=== PATIENT | female | born 1990 | race Caucasian/White ===

== ENCOUNTER 2019-10-31 22:44 | Emergency (ER) | payer OTHER ==
[2019-10-31] MEDS ORDERED: ACETAMINOPHEN 325 MG TABLET (FP) PO ONE (23:08)
[2019-10-31] MEDS ORDERED: ACETAMINOPHEN 325 MG TABLET (FP) ONE (23:10)
[2019-10-31 23:38] VITALS: BMI 35.0
[2019-11-01] MEDS ORDERED: OSELTAMIVIR PHOSPHATE 75 MG CAPSULE PO ONE (00:22)
[2019-11-01] MEDS ORDERED: OSELTAMIVIR PHOSPHATE 75 MG CAPSULE ONE (00:25)
--- NOTE | 2019-11-01 00:31 | PDOC ---
History of Present Illness - General Chief Complaint: Cold Symptoms Stated Complaint: FEVER Time Seen by Provider: 11/01/19 00:13 History Source: Patient Exam Limitations: No Limitations Past History - Past Medical History Allergies/Adverse Reactions: Allergies Allergy/AdvReac Type Severity Reaction Status Date / Time No Known Allergies Allergy Verified 10/31/19 23:06 Home Medications: Ambulatory Orders Oseltamivir Phosphate [Tamiflu] 75 mg PO BID #9 capsule 11/01/19 COPD: No Other medical history: psoriatic arthritis - Psycho Social/Smoking Cessation Hx Smoking History: Never smoked Have you smoked in the past 12 months: No Information on smoking cessation initiated: No Hx Alcohol Use: No Drug/Substance Use Hx: No *Physical Exam - Vital Signs Last Vital Signs Temp Pulse Resp BP Pulse Ox 101.8 F H 114 H 18 134/77 98 10/31/19 23:03 10/31/19 23:03 10/31/19 23:03 10/31/19 23:03 10/31/19 23:03 - Physical Exam General Appearance: No: Apparent Distress HEENT: positive: Pharynx Normal, Rhinorrhea. negative: Nasal Congestion Respiratory/Chest: positive: Lungs Clear, Normal Breath Sounds. negative: Respiratory Distress Cardiovascular: negative: Murmur Gastrointestinal/Abdominal: positive: Normal Bowel Sounds, Soft. negative: Tender, Distended, Guarding, Rebound Integumentary: positive: Normal Color Neurologic: positive: Alert ED Treatment Course - ADDITIONAL ORDERS Additional order review: Laboratory Results 10/31/19 23:45 Urine HCG, Qual Negative - Medications Given in the ED: ED Medications Discontinued Medications Generic Name Dose Route Start Last Admin Trade Name Johnq PRN Reason Stop Dose Admin Acetaminophen 975 mg 10/31/19 23:08 10/31/19 23:10 Tylenol - PO 10/31/19 23:09 975 mg ONCE ONE Administration Medical Decision Making - Medical Decision Making 29 y/o F hx of psoriatic arthritis (on methotrexate) presents with fever x 3 days along with chills, body aches, rhinorrhea, congestion. +sick family members with flu. Denies sob, cp, abd pain, n/v/d. Is keeping down liquids. Flu B+ Given Tylenol from triage Repeat temp is 99.8 Though patient past 48 hour window, will treat given on methotrexate Given tamiflu 11/01/19 00:26 Discharge - Discharge Information Problems reviewed: Yes Clinical Impression/Diagnosis: Influenza Condition: Stable Disposition: HOME - Admission No - Additional Discharge Information Prescriptions: Oseltamivir Phosphate [Tamiflu] 75 mg PO BID #9 capsule Prescription Drug Monitoring Program (I-STOP) results: I-STOP not reviewed - Follow up/Referral Referrals: Neyda Veronica [Primary Care Provider] - 2 Days - Patient Discharge Instructions Patient Printed Discharge Instructions: DI for Influenza -- Adult Additional Instructions: Thank you for choosing [facility]. It was a pleasure taking care of you. Please take Tamiflu as directed Alternate between Tylenol every 4 and Motrin every 6 hours as needed for fever Drink at least 2-3L of water daily Return to the Emergency Department if your symptoms worsen or persist or have other concerning symptoms. - Post Discharge Activity
[2019-11-01 00:35] VITALS: BP 128/72; PULSE 99; TEMP 99.3
== END 2019-11-01 00:37 | disposition home or self-care (01) ==
LOC: JER 22:44
DX: J10.1 Influenza due to other identified influenza virus with other respiratory manifestations (principal); L40.50 Arthropathic psoriasis, unspecified
CPT/HCPCS: 84703; 87804; 99282-25

== ENCOUNTER 2020-10-22 17:48 | Emergency (ER) | payer OTHER ==
[2020-10-22 17:56] VITALS: BP 127/78; PULSE 67; TEMP 97.9; BMI 36.5
[2020-10-22] MEDS ORDERED: ACETAMINOPHEN 325 MG TABLET (FP) PO ONE (19:23)
[2020-10-22] MEDS ORDERED: LIDOCAINE 5% TOPICAL PATCH TP ONE (19:23)
[2020-10-22] MEDS ORDERED: LIDOCAINE 5% TOPICAL PATCH ONE (19:27)
[2020-10-22] MEDS ORDERED: ACETAMINOPHEN 325 MG TABLET (FP) ONE (19:27)
[2020-10-22 21:24] LABS: HCG,QUALITATIVE URINE Positive
[2020-10-22 21:26] LABS: EPI CELLS 12 /uL (0-25.1); HYALINE CASTS 1 /uL (0-3.1); PH,URINE 5.5 (5.0-8.0); URINE APPEARANCE CLEAR; URINE BACTERIA 1563 /uL (0-1359); URINE BILIRUBIN NEGATIVE (NEGATIVE); URINE COLOR YELLOW; URINE GLUCOSE (UA) NEGATIVE (NEGATIVE); URINE KETONE NEGATIVE (NEGATIVE); URINE LEUK ESTERASE 2+ (NEGATIVE); URINE NITRITE NEGATIVE (NEGATIVE); URINE PROTEIN NEGATIVE (NEGATIVE); URINE WBC 203 /uL (0-25.8)
[2020-10-22 21:39] LABS: URINE RBC 30.5 /uL (0-23.9)
== END 2020-10-22 22:19 | disposition home or self-care (01) ==
LOC: JER 17:48 → MERGE 17:48 → JER 22:19
DX: N39.0 Urinary tract infection, site not specified (principal); M54.5 Low back pain; N83.209 Unspecified ovarian cyst, unspecified side; Z3A.01 Less than 8 weeks gestation of pregnancy
CPT/HCPCS: 76815; 76817-TC; 81003; 84703; 87086; 99284-25

== ENCOUNTER 2021-06-08 07:40 | Inpatient (IN) | payer OTHER ==
[2021-06-08] MEDS ORDERED: ELECTROLYTE-148 SOLN 1,000 ML IV SCH (08:15)
[2021-06-08 08:45] VITALS: BMI 41.4
[2021-06-08] MEDS ORDERED: CITRIC ACID/SODIUM CITRATE 30 ML UNIT-DOSE CUP PO ONE (09:45)
[2021-06-08] MEDS ORDERED: ceFAZolin SODIUM 1 GM VIAL ONE (10:29)
[2021-06-08] MEDS ORDERED: DEXAMETHASONE SOD PHOSPHATE 4 MG/1 ML VIAL ONE (10:29)
[2021-06-08] MEDS ORDERED: morphine SULFATE/PF 0.5 MG/ML (2cc Syringe - QUVA) ONE (10:29)
[2021-06-08] MEDS ORDERED: ONDANSETRON 4 MG/2 ML VIAL ONE (10:29)
[2021-06-08] MEDS ORDERED: OXYTOCIN 10 UNITS/ML VIAL ONE (11:07)
[2021-06-08] MEDS ORDERED: KETOROLAC TROMETHAMINE 30 MG/1 ML VIAL ONE (11:32)
[2021-06-08] MEDS ORDERED: BENZOCAINE 20% 57 GM BOTTLE TP PRN (11:50)
[2021-06-08] MEDS ORDERED: WITCH HAZEL 50% (TUCKS) 40 PAD/JAR PAD TP PRN (11:50)
[2021-06-08] MEDS ORDERED: BENZOCAINE 28 GM HEMORRHOIDAL OINTMENT TP PRN (11:50)
[2021-06-08] MEDS ORDERED: METHYLERGONOVINE MALEATE 0.2 MG/1 ML AMP IM PRN (11:50)
[2021-06-08] MEDS ORDERED: diphenhydrAMINE HCL 25 MG CAPSULE (FP) PO PRN (11:50)
[2021-06-08] MEDS ORDERED: oxyCODONE HCL 5 MG TABLET PO PRN (11:50)
[2021-06-08] MEDS ORDERED: OXYTOCIN 20 UNITS in 0.9% NS 20 UNIT/1,000 ML INFUS.BAG IV ONE (11:52)
[2021-06-08] MEDS ORDERED: DEXTROSE 5%-LACTATED RINGERS 1,000 ML IV SCH (12:00)
[2021-06-08] MEDS ORDERED: OXYTOCIN 20 UNITS in 0.9% NS 20 UNIT/1,000 ML INFUS.BAG IV SCH (12:00)
[2021-06-08] MEDS ORDERED: ONDANSETRON 4 MG/2 ML VIAL IVPUSH PRN (12:40)
[2021-06-08] MEDS ORDERED: ACETAMINOPHEN 1000 MG/100 ML VIAL (NON FORMULARY) IVPB PRN (12:42)
[2021-06-08] MEDS: CEFAZOLIN 1 GM/D5W 1 GM/50 ML BAG IVPB SCH (17:03)
[2021-06-08] MEDS: IBUPROFEN 800 MG/8 ML IJ IVPB PRN (17:39)
[2021-06-08] MEDS ORDERED: hydrOXYzine PAMOATE 25 MG CAPSULE (FP) PO PRN (20:22)
[2021-06-09] MEDS: CEFAZOLIN 1 GM/D5W 1 GM/50 ML BAG IVPB SCH (02:35)
[2021-06-09] MEDS: IBUPROFEN 800 MG/8 ML IJ IVPB PRN (08:55)
[2021-06-09] MEDS: ENOXAPARIN NA (PORCINE) 40 MG/0.4 ML DISP.SYRIN SQ SCH (09:39)
[2021-06-09 10:04] LABS: BASO % 0.3 % (0-2.0); EOS % 0.7 % (0-4.5); HEMATOCRIT 34.8 % (32.4-45.2); HEMOGLOBIN 11.8 GM/dL (10.7-15.3); MCH 29.2 pg (25.7-33.7); MCHC 33.9 g/dl (32.0-36.0); MEAN CELL VOLUME 86.1 fl (80-96); MEAN PLT VOLUME 8.1 fl (7.5-11.1); MONO % 6.3 % (3.8-10.2); NEUT % 77.7 % (42.8-82.8); PLATELET COUNT 182 10^3/uL (134-434); RBC 4.04 M/mm3 (3.60-5.2); WHITE BLOOD COUNT 13.6 K/mm3 (4.0-10.0)
[2021-06-09] MEDS ORDERED: BISACODYL 10 MG SUPP.RECT PR PRN (11:50)
[2021-06-09] MEDS: oxyCODONE HCL 5 MG TABLET PO PRN ×2 (13:06→22:47)
[2021-06-09] MEDS: SIMETHICONE 80 MG TAB.CHEW (FP) PO PRN ×2 (13:07→17:43)
[2021-06-09] MEDS: IBUPROFEN 600 MG TABLET (FP) PO PRN (17:43)
[2021-06-10] MEDS: IBUPROFEN 600 MG TABLET (FP) PO PRN (02:13)
[2021-06-10] MEDS: ACETAMINOPHEN 325 MG TABLET (FP) PO PRN ×3 (02:14→15:56)
[2021-06-10] MEDS: SIMETHICONE 80 MG TAB.CHEW (FP) PO PRN ×2 (02:14→21:27)
[2021-06-10] MEDS: ENOXAPARIN NA (PORCINE) 40 MG/0.4 ML DISP.SYRIN SQ SCH (09:41)
[2021-06-10] MEDS: oxyCODONE HCL 5 MG TABLET PO PRN ×2 (15:55→21:27)
[2021-06-10] MEDS ORDERED: SENNOSIDES/DOCUSATE COMBO (SENNA PLUS) TABLET (UD) PO PRN (22:00)
[2021-06-11] MEDS: IBUPROFEN 600 MG TABLET (FP) PO PRN (02:06)
[2021-06-11 08:48] VITALS: BP 101/60; PULSE 71; TEMP 98.1
[2021-06-11] MEDS: ENOXAPARIN NA (PORCINE) 40 MG/0.4 ML DISP.SYRIN SQ SCH (09:55)
[2021-06-11 09:57] LABS: BASO % 0.3 % (0-2.0); HEMATOCRIT 34.6 % (32.4-45.2); HEMOGLOBIN 11.7 GM/dL (10.7-15.3); LYMPH % 22.7 % (8-40); MCH 29.3 pg (25.7-33.7); MCHC 33.9 g/dl (32.0-36.0); MEAN CELL VOLUME 86.4 fl (80-96); MEAN PLT VOLUME 8.3 fl (7.5-11.1); MONO % 7.6 % (3.8-10.2); NEUT % 67.4 % (42.8-82.8); PLATELET COUNT 208 10^3/uL (134-434); RDW 15.1 % (11.6-15.6); WHITE BLOOD COUNT 8.5 K/mm3 (4.0-10.0)
== END 2021-06-11 14:10 | disposition home or self-care (01) | DRG 540 ==
LOC: JLDR 07:40 → J3W 13:25
PROVIDERS: ADMIT Obstetrics & Gynecology; ATTEND Obstetrics & Gynecology
PROC: 10D00Z1 Extraction of Products of Conception, Low, Open Approach (ICD-10-PCS; principal; 2021-06-08)
PROC: 0UT70ZZ Resection of Bilateral Fallopian Tubes, Open Approach (ICD-10-PCS; 2021-06-08)
DX: O34.211 Maternal care for low transverse scar from previous cesarean delivery (principal); O99.214 Obesity complicating childbirth; E66.01 Morbid (severe) obesity due to excess calories; O69.81X0 Labor and delivery complicated by cord around neck, without compression, not applicable or unspecified; Z30.2 Encounter for sterilization; Z3A.39 39 weeks gestation of pregnancy; Z37.0 Single live birth
CPT/HCPCS: 36415; 82962; 85025; 88302-TC; 88307-TC; J0131

== ENCOUNTER 2021-07-04 22:39 | Emergency (ER) | payer OTHER ==
[2021-07-04 22:52] VITALS: BMI 35.0
[2021-07-05] MEDS ORDERED: ACETAMINOPHEN 1000 MG/100 ML VIAL (NON FORMULARY) IVPB ONE (01:07)
[2021-07-05] MEDS ORDERED: ACETAMINOPHEN INJECTION 100 ML IVPB ONE (01:30)
[2021-07-05 01:48] LABS: BASO % 0.6 % (0-2.0); EOS % 3.2 % (0-4.5); HEMATOCRIT 41.6 % (32.4-45.2); HEMOGLOBIN 14.1 GM/dL (10.7-15.3); LYMPH % 35.7 % (8-40); MCH 28.7 pg (25.7-33.7); MEAN CELL VOLUME 84.6 fl (80-96); MEAN PLT VOLUME 8.7 fl (7.5-11.1); MONO % 6.4 % (3.8-10.2); NEUT % 54.1 % (42.8-82.8); PLATELET COUNT 230 10^3/uL (134-434); RBC 4.91 M/mm3 (3.60-5.2); RDW 14.4 % (11.6-15.6); WHITE BLOOD COUNT 8.2 K/mm3 (4.0-10.0)
[2021-07-05 02:09] LABS: INR 0.89 (0.83-1.09); PROTHROMBIN TIME (PATIENT) 10.8 SEC (9.7-13.0)
[2021-07-05 02:11] LABS: ACTIVATED PTT 39.7 SECONDS (25.2-36.5)
[2021-07-05 02:12] LABS: CHLORIDE 105 mmol/L (98-107); SODIUM 140 mmol/L (136-145)
[2021-07-05 02:14] LABS: ALBUMIN 3.3 g/dl (3.4-5.0); BLOOD UREA NITROGEN 14.7 mg/dL (7-18); CALCIUM 8.5 mg/dL (8.5-10.1); CO2 31 mmol/L (21-32); GLUCOSE,RANDOM 91 mg/dL (74-106)
[2021-07-05 02:17] LABS: CREATININE 0.9 mg/dL (0.55-1.3); SGOT/AST 48 U/L (15-37); SGPT/ALT 44 U/L (13-61)
[2021-07-05 02:19] LABS: BILIRUBIN,TOTAL 0.4 mg/dL (0.2-1); TOT PROT 6.9 g/dl (6.4-8.2)
[2021-07-05 02:20] LABS: ALK PHOS 101 U/L (45-117)
[2021-07-05 02:51] LABS: ANION GAP 4 MMOL/L (8-16)
[2021-07-05] MEDS ORDERED: KETOROLAC TROMETHAMINE 30 MG/1 ML VIAL IVPUSH ONE (03:21)
[2021-07-05] MEDS ORDERED: KETOROLAC TROMETHAMINE 30 MG/1 ML VIAL ONE (03:40)
[2021-07-05] MEDS ORDERED: ONDANSETRON *ODT* 4 MG TABLET SL ONE (03:51)
[2021-07-05 03:56] LABS: ALBUMIN 3.4 g/dl (3.4-5.0); BLOOD UREA NITROGEN 15.8 mg/dL (7-18); CALCIUM 8.4 mg/dL (8.5-10.1)
[2021-07-05 03:59] LABS: CREATININE 0.9 mg/dL (0.55-1.3)
[2021-07-05] MEDS ORDERED: ONDANSETRON *ODT* 4 MG TABLET ONE (04:00)
[2021-07-05 04:01] LABS: BILIRUBIN,TOTAL 0.3 mg/dL (0.2-1); TOT PROT 6.7 g/dl (6.4-8.2)
[2021-07-05 04:26] VITALS: BP 117/89; PULSE 82; TEMP 98.2
== END 2021-07-05 04:26 | disposition home or self-care (01) ==
LOC: JER 22:39
PROC: 3E0333Z Introduction of Anti-inflammatory into Peripheral Vein, Percutaneous Approach (ICD-10-PCS; principal; 2021-07-04)
PROC: 3E0333Z Introduction of Anti-inflammatory into Peripheral Vein, Percutaneous Approach (ICD-10-PCS; 2021-07-04)
DX: R10.2 Pelvic and perineal pain (principal)
CPT/HCPCS: 36415; 74177-TC; 80053; 85025; 85610; 85730; 86850; 86900; 86901; 99285-25; J0131; Q0162

== ENCOUNTER 2022-03-23 19:13 | Emergency (ER) | payer OTHER ==
[2022-03-23 19:23] VITALS: BP 105/65; PULSE 66; TEMP 98.7; BMI 35.0
[2022-03-23] MEDS ORDERED: KETOROLAC TROMETHAMINE 60 MG/2 ML VIAL IM ONE (20:10)
[2022-03-23] MEDS ORDERED: KETOROLAC TROMETHAMINE 60 MG/2 ML VIAL ONE (20:12)
== END 2022-03-23 20:58 | disposition home or self-care (01) ==
LOC: FER 19:13
PROC: 3E0233Z Introduction of Anti-inflammatory into Muscle, Percutaneous Approach (ICD-10-PCS; principal; 2022-03-23)
DX: M54.2 Cervicalgia (principal); M54.50 Low back pain, unspecified; V89.2XXA Person injured in unspecified motor-vehicle accident, traffic, initial encounter
CPT/HCPCS: 72100-TC-FY; 99284-25

== ENCOUNTER 2022-04-14 19:51 | Emergency (ER) | payer OTHER ==
[2022-04-14 20:26] VITALS: BP 108/71; PULSE 60; TEMP 98.8; BMI 35.0
[2022-04-14] MEDS ORDERED: SODIUM CHLORIDE 1,000 ML IV ONE (20:53)
[2022-04-14] MEDS ORDERED: KETOROLAC TROMETHAMINE 30 MG/1 ML VIAL ONE (21:03)
[2022-04-14] MEDS ORDERED: KETOROLAC TROMETHAMINE 30 MG/1 ML VIAL IVPUSH ONE (21:05)
[2022-04-14 21:14] LABS: HEMATOCRIT 37.5 % (32.4-45.2); HEMOGLOBIN 13.2 G/dL (10.7-15.3); MCH 31.4 pg (25.7-33.7); MCHC 35.3 g/dl (32.0-36.0); MEAN CELL VOLUME 88.9 fl (80-96); PLATELET COUNT 287.6 10^3/uL (134-434); RBC 4.22 10^6/uL (3.60-5.2); RDW 15.3 % (11.6-15.6); WHITE BLOOD COUNT 10.3 10^3/uL (4.0-10.8)
[2022-04-14 21:24] LABS: PLATELET ESTIMATE ADEQUATE
[2022-04-14 21:29] LABS: BILIRUBIN,TOTAL 0.5 mg/dl (0.2-1); CALCIUM 9.4 mg/dl (8.5-10); CREATININE 0.6 mg/dl (0.55-1.3); TOT PROT 6.8 g/dl (6.4-8.2)
== END 2022-04-14 22:35 | disposition home or self-care (01) ==
LOC: SUPCPDRO 19:51 → FER 19:51
PROC: 3E0333Z Introduction of Anti-inflammatory into Peripheral Vein, Percutaneous Approach (ICD-10-PCS; principal; 2022-04-14)
PROC: 3E0337Z Introduction of Electrolytic and Water Balance Substance into Peripheral Vein, Percutaneous Approach (ICD-10-PCS; 2022-04-14)
DX: R10.9 Unspecified abdominal pain (principal)
CPT/HCPCS: 36415; 74176-TC; 80053; 85025; 99284-25

== ENCOUNTER 2023-02-28 03:58 | Day surgery (SDC) | payer OTHER ==
[2023-02-24 11:03] VITALS: BMI 35.0
[2023-02-28] MEDS ORDERED: ONDANSETRON 4 MG/2 ML VIAL IVPUSH PRN ×2 (07:46→09:58)
[2023-02-28] MEDS ORDERED: oxyCODONE HCL 5 MG TABLET PO PRN ×2 (07:46→09:58)
[2023-02-28] MEDS ORDERED: PROMETHAZINE HCL 25 MG/1 ML VIAL IVPB PRN (07:46)
[2023-02-28] MEDS ORDERED: LACTATED RINGERS SOLUTION 1,000 ML IV SCH (08:00)
[2023-02-28] MEDS ORDERED: MIDAZOLAM HCL 2 MG/2 ML SINGLE DOSE VIAL ONE ×2 (08:12→11:01)
[2023-02-28] MEDS ORDERED: PROPOFOL 20 ML ONE ×2 (09:16→09:47)
[2023-02-28] MEDS ORDERED: metroNIDAZOLE 0.75% VAGINAL GEL 70 GM TUBE ONE (09:42)
[2023-02-28] MEDS ORDERED: IBUPROFEN 800 MG/8 ML IJ IVPB PRN (09:58)
[2023-02-28] MEDS ORDERED: IBUPROFEN 600 MG TABLET (FP) PO PRN (09:58)
[2023-02-28] MEDS ORDERED: ELECTROLYTE-148 SOLN 1,000 ML IV SCH (10:00)
[2023-02-28] MEDS ORDERED: SUCCINYLCHOLINE CHLORIDE 200 MG/10 ML SYRINGE ONE (10:03)
[2023-02-28] MEDS ORDERED: oxyCODONE HCL 5 MG TABLET ONE (12:14)
[2023-02-28 12:32] VITALS: RESP 20; TEMP 97.5
[2023-02-28 13:40] VITALS: BP 124/72; PULSE 83
== END 2023-02-28 13:30 | disposition home or self-care (01) ==
LOC: JASU-SURG 03:58
PROVIDERS: ATTEND Obstetrics & Gynecology
PROC: 0UBC7ZX Excision of Cervix, Via Natural or Artificial Opening, Diagnostic (ICD-10-PCS; principal; 2023-02-28 09:00)
DX: D06.7 Carcinoma in situ of other parts of cervix (principal)
CPT/HCPCS: 81025; 88305-TC; 88307-TC; 94760

== ENCOUNTER 2023-10-21 20:51 | Emergency (ER) | payer OTHER ==
[2023-10-21 20:56] VITALS: BP 122/63; PULSE 88; RESP 18; TEMP 98.2; BMI 37.7
[2023-10-21 22:54] LABS: BASO % 0.7 % (0-2.0); EOS % 2.4 % (0-4.5); HEMATOCRIT 37.4 % (32.4-45.2); HEMOGLOBIN 12.1 GM/dL (10.7-15.3); LYMPH % 41.8 % (8-40); MCH 27.1 pg (25.7-33.7); MCHC 32.4 g/dl (32.0-36.0); MEAN CELL VOLUME 83.6 fl (80-96); MEAN PLT VOLUME 8.3 fl (7.5-11.1); MONO % 8.4 % (3.8-10.2); NEUT % 46.7 % (42.8-82.8); PLATELET COUNT 274 10^3/uL (134-434); RBC 4.47 M/mm3 (3.60-5.2); WHITE BLOOD COUNT 8.3 K/mm3 (4.0-10.0)
[2023-10-21 23:00] LABS: INR 0.99 (0.83-1.09); PROTHROMBIN TIME (PATIENT) 11.5 SEC (9.7-13.0)
[2023-10-21 23:02] LABS: ACTIVATED PTT 31.8 SECONDS (25.2-36.5)
[2023-10-21 23:14] LABS: POTASSIUM 4.3 mmol/L (3.5-5.1)
[2023-10-21 23:16] LABS: ALBUMIN 3.3 g/dl (3.4-5.0); CALCIUM 8.6 mg/dL (8.5-10.1)
[2023-10-21 23:17] LABS: BLOOD UREA NITROGEN 9.3 mg/dL (7-18)
[2023-10-21 23:19] LABS: CREATININE 0.6 mg/dL (0.55-1.3)
[2023-10-21 23:21] LABS: BILIRUBIN,TOTAL 0.3 mg/dL (0.2-1); TOT PROT 6.5 g/dl (6.4-8.2)
== END 2023-10-22 00:10 | disposition home or self-care (01) ==
LOC: JER 20:51
DX: R07.2 Precordial pain (principal); R94.6 Abnormal results of thyroid function studies; R20.2 Paresthesia of skin
CPT/HCPCS: 36415; 71046-TC-FY; 80053; 84443; 84484; 85025; 85610; 85730; 93005; 93010; 99285-25

== ENCOUNTER 2024-04-14 15:04 | Emergency (ER) | payer OTHER ==
[2024-04-14 15:17] VITALS: BP 122/78; PULSE 74; RESP 20; TEMP 98.1; BMI 34.2
[2024-04-14] MEDS ORDERED: LIDOCAINE 4% PATCH TP ONE (16:17)
[2024-04-14] MEDS ORDERED: ACETAMINOPHEN 500 MG TABLET (FP) ONE (16:17)
[2024-04-14] MEDS: LIDOCAINE 4% PATCH TP ONE (16:21)
[2024-04-14] MEDS: ACETAMINOPHEN 500 MG TABLET (FP) PO ONE (16:21)
[2024-04-14] MEDS ORDERED: LIDOCAINE PATCH REMOVAL MC SCH (22:00)
== END 2024-04-14 16:23 | disposition home or self-care (01) ==
LOC: JERFT 15:04
DX: M54.50 Low back pain, unspecified (principal); M54.2 Cervicalgia; V49.40XA Driver injured in collision with unspecified motor vehicles in traffic accident, initial encounter; Y92.410 Unspecified street and highway as the place of occurrence of the external cause
CPT/HCPCS: 99283-25